=== PATIENT | female | born 1960 | race American Indian/Alaskan Native ===

== ENCOUNTER 2016-04-14 13:52 | Emergency (ER) | payer SELFPAY ==
[2016-04-14 14:04] VITALS: BP 149/96
== END 2016-04-14 14:15 | disposition left against medical advice (07) ==
LOC: ED 13:52
DX: M54.9 Dorsalgia, unspecified (principal); Z53.21 Procedure and treatment not carried out due to patient leaving prior to being seen by health care provider

== ENCOUNTER 2016-12-07 10:37 | Outpatient (CLI) | payer BC ==
[2016-12-07] MEDS ORDERED: NACL ONE ×2 (14:05)
--- NOTE | 2016-12-07 14:58 | Cat Scan Report ---
CT ABDOMEN PELVIS WITH AND WITHOUT CONTRAST HISTORY: Pancreatic mass, insulinoma TECHNIQUE: Helical CT before and after IV contrast. Sagittal and coronal reformatted images. Delayed imaging of the renal collecting systems. FINDINGS: Compared to the exam dated 09/24/12. The pancreas is normal size, contour and echotexture. No abnormal enhancement is identified to suggest an insulinoma. No pancreatic mass or inflammatory changes. The liver, biliary system, spleen, kidneys and adrenal glands are unremarkable. The bowel loops are normal caliber and mucosal pattern. Normal appendix. The aorta is normal caliber and widely patent. The uterus, adnexa and bladder are unremarkable. No evidence for inflammatory changes, free air, or adenopathy. No suspicious bony lesion. Heart size is normal. The visualized lung bases are clear. Impression: Unremarkable CT abdomen pelvis with and without contrast. No pancreatic lesion is detected.
== END 2016-12-07 10:38 | disposition home or self-care (01) ==
LOC: CT 10:37
PROVIDERS: ATTEND Internal Medicine
DX: D13.7 Benign neoplasm of endocrine pancreas (principal)
CPT/HCPCS: 74178; Q9967

== ENCOUNTER 2017-03-08 10:53 | Outpatient (CLI) | payer BC ==
--- NOTE | 2017-03-08 16:26 | Mammography Report ---
BILATERAL DIGITAL SCREENING MAMMOGRAM with CAD: 03/08/17 10:53:00 CLINICAL: Routine screening. COMPARISON:09/03/13 FINDINGS: The breasts are heterogeneously dense, which may obscure small masses. No mass, architectural distortion or suspicious calcifications. IMPRESSION: No mammographic evidence of malignancy. BI-RADS CATEGORY: 1 - - Negative RECOMMENDATION: Routine mammographic screening in one year. COMMENT: Patient follow-up letters are generated by our [employer] application.
== END 2017-03-08 10:54 | disposition home or self-care (01) ==
LOC: MAMMO 10:53
PROVIDERS: ATTEND Internal Medicine
DX: Z12.31 Encounter for screening mammogram for malignant neoplasm of breast (principal)
CPT/HCPCS: 77067; G0202

== ENCOUNTER 2017-11-24 09:34 | Outpatient (CLI) | payer BC ==
[2017-11-24 10:06] LABS: Basophils % (Auto) 0.5 % (0.0-1.8); Eosinophils # (Auto) 0.2 K/mm3 (0.0-0.4); Eosinophils % (Auto) 3.4 % (0.0-4.3); Hematocrit 42.1 % (30.3-42.9); Hemoglobin 13.7 gm/dl (10.1-14.3); Lymphocytes # (Auto) 1.7 K/mm3 (1.2-5.4); Lymphocytes % (Auto) 24.9 % (13.4-35.0); Mean Corpuscular HGB Conc 33 % (30-34); Mean Corpuscular Hemoglobin 27 pg (28-32); Mean Corpuscular Volume 82 fl (79-97); Monocytes # (Auto) 0.4 K/mm3 (0.0-0.8); Monocytes % (Auto) 6.4 % (0.0-7.3); Platelet Count 250 K/mm3 (140-440); Red Blood Count 5.15 M/mm3 (3.65-5.03); Red Cell Distribution Width 16.5 % (13.2-15.2)
[2017-11-24 10:10] LABS: Bilirubin,Urine NEG (Negative); Blood,Urine NEG (Negative); Color,Urine Yellow (Yellow); Protein,Urine <15 mg/dL mg/dL (Negative); Urobilinogen,Urine < 2.0 mg/dL (<2.0)
--- NOTE | 2017-11-24 10:33 | XRay Report ---
RIGHT FOOT, 3 views: History: Contusion, right foot pain. A nondisplaced fracture is identified involving the proximal phalanx of the fifth toe. Subtle calcified callus is identified at the fracture site consistent with a subacute injury, correlate with the patient's clinical history. The remaining bony structures and joint spaces are within normal limits. A moderate plantar spur is identified. IMPRESSION: Healing fracture, proximal phalanx, fifth toe.
[2017-11-24 10:39] LABS: Alanine Aminotransferase 12 units/L (7-56); Albumin 4.3 g/dL (3.9-5); BUN/Creatinine Ratio 26; Blood Urea Nitrogen 13 mg/dL (7-17); Calcium 9.3 mg/dL (8.4-10.2); Hemolysis Index 4
== END 2017-11-24 09:35 | disposition home or self-care (01) ==
LOC: XRAY 09:34
PROVIDERS: ATTEND Internal Medicine
DX: S92.911D Unspecified fracture of right toe(s), subsequent encounter for fracture with routine healing (principal); M19.90 Unspecified osteoarthritis, unspecified site; E78.2 Mixed hyperlipidemia; E55.9 Vitamin D deficiency, unspecified; I10 Essential (primary) hypertension; E03.8 Other specified hypothyroidism; D50.8 Other iron deficiency anemias; X58.XXXA Exposure to other specified factors, initial encounter; Y93.89 Activity, other specified; Y92.89 Other specified places as the place of occurrence of the external cause; Y99.8 Other external cause status
CPT/HCPCS: 36415; 80053; 81001; 82306; 83036; 84436; 84443; 85025

== ENCOUNTER 2018-08-15 10:29 | Outpatient (CLI) | payer BC ==
[2018-08-15 11:25] LABS: Basophils # (Auto) 0.1 K/mm3 (0.0-0.1); Basophils % (Auto) 0.8 % (0.0-1.8); Eosinophils # (Auto) 0.3 K/mm3 (0.0-0.4); Hematocrit 40.7 % (30.3-42.9); Hemoglobin 13.4 gm/dl (10.1-14.3); Lymphocytes # (Auto) 2.3 K/mm3 (1.2-5.4); Lymphocytes % (Auto) 31.1 % (13.4-35.0); Mean Corpuscular HGB Conc 33 % (30-34); Mean Corpuscular Volume 83 fl (79-97); Monocytes # (Auto) 0.5 K/mm3 (0.0-0.8); Monocytes % (Auto) 6.5 % (0.0-7.3); Platelet Count 278 K/mm3 (140-440); Red Blood Count 4.92 M/mm3 (3.65-5.03); Red Cell Distribution Width 15.9 % (13.2-15.2)
[2018-08-15 11:38] LABS: Bilirubin,Urine NEG (Negative); Blood,Urine MOD (Negative); Color,Urine Yellow (Yellow); Mucus,Urine FEW /HPF; Protein,Urine <15 mg/dL mg/dL (Negative); Urobilinogen,Urine < 2.0 mg/dL (<2.0)
[2018-08-15 11:53] LABS: Alanine Aminotransferase 11 units/L (7-56); BUN/Creatinine Ratio 20; Blood Urea Nitrogen 12 mg/dL (7-17); Calcium 9.1 mg/dL (8.4-10.2); Chol/HDL Ratio 4.32 %; HDL Cholesterol 40 mg/dL (40-59); Hemolysis Index 2; LDL Cholesterol,Direct 115 mg/dL (50-130)
[2018-08-15 12:00] LABS: Free T4 (Free Thyroxine) 1.25 ng/dL (0.76-1.46)
[2018-08-18 07:49] LABS: Vitamin D, 25-OH, D2 17 ng/mL
== END 2018-08-15 10:30 | disposition home or self-care (01) ==
LOC: LAB 10:29
PROVIDERS: ATTEND Internal Medicine
DX: Z13.1 Encounter for screening for diabetes mellitus (principal); Z13.0 Encounter for screening for diseases of the blood and blood-forming organs and certain disorders involving the immune mechanism; E78.2 Mixed hyperlipidemia; E03.8 Other specified hypothyroidism; E55.9 Vitamin D deficiency, unspecified; R73.02 Impaired glucose tolerance (oral)
CPT/HCPCS: 36415; 80053; 80061; 81001; 82306; 83036; 84439; 84443; 85025; 87086

== ENCOUNTER 2018-08-17 13:43 | Outpatient (CLI) | payer BC ==
--- NOTE | 2018-08-17 15:01 | Mammography Report ---
BILATERAL MAMMOGRAM: FINDINGS: The breast tissue is heterogeneously dense, which could obscure detection of small masses (approximately 50%-75% glandular). No mass, distortion, suspicious calcification, or skin change is seen. No significant change noted when compared to prior examination in February 2017. CAD was utilized. IMPRESSION: Negative mammogram. There is no mammographic evidence of malignancy. RECOMMENDATION: Follow-up per ACS guidelines. BI-RADS CATEGORY: 1 = Negative ACR BI-RADS MAMMOGRAPHIC CODES: 0 = Needs additional imaging evaluation; 1 = Negative; 2 = Benign; 3 = Probably benign; 4 = Suspicious; 5 = Malignant; 6 = Known biopsy-proven malignancy COMMENT: 1. Dense breast tissue, i.e., adenosis, fibrocystic changes, etc., may obscure an underlying neoplasm. 2. Approximately 10% of cancers are not detected with mammography. 3. A negative mammography report should not delay biopsy if a clinically suspicious mass is present. COMMENT: Patient follow-up letters are generated in [employer].
== END 2018-08-17 13:44 | disposition home or self-care (01) ==
LOC: MAMMO 13:43
PROVIDERS: ATTEND Internal Medicine
DX: Z12.31 Encounter for screening mammogram for malignant neoplasm of breast (principal)
CPT/HCPCS: 77067

== ENCOUNTER 2019-03-15 21:35 | Emergency (ER) | payer BC, OTHER ==
[2019-03-15] MEDS ORDERED: IBUPROFEN 800 MG TAB PO ONE (21:49)
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
[2019-03-16 02:13] VITALS: BP 148/86
== END 2019-03-16 02:11 | disposition home or self-care (01) ==
LOC: ED 21:35
DX: S13.4XXA Sprain of ligaments of cervical spine, initial encounter (principal); S39.012A Strain of muscle, fascia and tendon of lower back, initial encounter; S00.03XA Contusion of scalp, initial encounter; M19.90 Unspecified osteoarthritis, unspecified site; E03.9 Hypothyroidism, unspecified; Z88.0 Allergy status to penicillin; Z88.6 Allergy status to analgesic agent; V89.2XXA Person injured in unspecified motor-vehicle accident, traffic, initial encounter; Y93.89 Activity, other specified; Y92.410 Unspecified street and highway as the place of occurrence of the external cause; Y99.8 Other external cause status
CPT/HCPCS: 70450; 72100; 72125

== ENCOUNTER 2019-07-30 17:27 | Outpatient (CLI) | payer BC ==
[2019-07-30 18:17] LABS: Basophils % (Auto) 0.5 % (0.0-1.8); Eosinophils # (Auto) 0.2 K/mm3 (0.0-0.4); Eosinophils % (Auto) 2.4 % (0.0-4.3); Hematocrit 44.9 % (30.3-42.9); Hemoglobin 14.8 gm/dl (10.1-14.3); Lymphocytes # (Auto) 2.2 K/mm3 (1.2-5.4); Lymphocytes % (Auto) 25.1 % (13.4-35.0); Mean Corpuscular HGB Conc 33 % (30-34); Mean Corpuscular Volume 85 fl (79-97); Monocytes # (Auto) 0.3 K/mm3 (0.0-0.8); Monocytes % (Auto) 3.1 % (0.0-7.3); Platelet Count 304 K/mm3 (140-440); Red Blood Count 5.27 M/mm3 (3.65-5.03); Red Cell Distribution Width 14.8 % (13.2-15.2)
[2019-07-30 18:24] LABS: Bilirubin,Urine NEG (Negative); Blood,Urine NEG (Negative); Color,Urine Straw (Yellow); Mucus,Urine FEW /HPF; Protein,Urine <15 mg/dL mg/dL (Negative); Urobilinogen,Urine < 2.0 mg/dL (<2.0)
[2019-07-30 18:26] LABS: Creatinine,Urine 40.9 mg/dL (0.1-20.0)
[2019-07-30 18:36] LABS: Microalbumin/Creatinine Ratio 29.3 ug/mg
[2019-07-30 18:39] LABS: Alanine Aminotransferase 12 units/L (7-56); Albumin 4.9 g/dL (3.9-5); BUN/Creatinine Ratio 16; Blood Urea Nitrogen 13 mg/dL (7-17); Calcium 9.9 mg/dL (8.4-10.2); Chol/HDL Ratio 4.24 %; HDL Cholesterol 53 mg/dL (40-59); Hemolysis Index 1; LDL Cholesterol,Direct 152 mg/dL (50-130)
[2019-07-30 18:45] LABS: Hepatitis C Virus Antibody Non-Reactive (NonReactive)
== END 2019-07-30 17:28 | disposition home or self-care (01) ==
LOC: LAB 17:27
PROVIDERS: ATTEND Internal Medicine
DX: Z13.0 Encounter for screening for diseases of the blood and blood-forming organs and certain disorders involving the immune mechanism (principal); E78.2 Mixed hyperlipidemia
CPT/HCPCS: 36415; 80053; 80061; 81001; 82043; 82652; 83036; 84436; 84443; 85025; 86803

== ENCOUNTER 2019-08-09 14:06 | Outpatient (CLI) | payer BC ==
--- NOTE | 2019-08-10 09:07 | Mammography Report ---
DIGITAL SCREENING MAMMOGRAM WITH CAD, 08/09/2019 INDICATION: Routine screening mammography. TECHNIQUE: Digital bilateral 2D mammography was obtained in the craniocaudal and mediolateral obliq ue projections. This examination was interpreted with the benefit of Computer-Aided Detection analysi s. COMPARISON: 03/08/2017. FINDINGS: Breast Density: The breasts are heterogeneously dense, which may obscure small masses. There is no evidence of dominant mass, suspicious calcifications or architectural distortion in eithe r breast. IMPRESSION: Follow up recommendation: Routine yearly BI-RADS Category 1: Negative. A "normal" or negative report should not discourage follow up or biopsy of a clinically significant f inding. A written summary of these findings will be mailed to the patient. The patient will be entered into a mammography reporting system which will generate a reminder letter for the patient's next appointmen t at the appropriate interval. The [employer] recommends yearly mammograms starting at age 40 and continuing as l jailene as a woman is in good health. Breast MRI is recommended for women with an approximate 20-25% or greater lifetime risk of breast cancer, including women with a strong family history of breast or ova emi cancer or who have been treated for Hodgkin's disease. Signer Name: Paul Ribeiro MD Signed: 08/10/2019 9:03 AM Workstation Name: [email or web address]
== END 2019-08-09 14:07 | disposition home or self-care (01) ==
LOC: SPVWC 14:06
PROVIDERS: ATTEND Internal Medicine
DX: Z12.31 Encounter for screening mammogram for malignant neoplasm of breast (principal)
CPT/HCPCS: 77067

== ENCOUNTER 2020-02-12 12:07 | Outpatient (CLI) | payer BC ==
[2020-02-12 12:56] LABS: Basophils % (Auto) 0.7 % (0.0-1.8); Eosinophils # (Auto) 0.3 K/mm3 (0.0-0.4); Eosinophils % (Auto) 4.2 % (0.0-4.3); Hemoglobin 13.7 gm/dl (10.1-14.3); Lymphocytes # (Auto) 1.8 K/mm3 (1.2-5.4); Lymphocytes % (Auto) 25.8 % (13.4-35.0); Mean Corpuscular HGB Conc 33 % (30-34); Mean Corpuscular Volume 85 fl (79-97); Monocytes # (Auto) 0.5 K/mm3 (0.0-0.8); Monocytes % (Auto) 6.4 % (0.0-7.3); Platelet Count 253 K/mm3 (140-440); Red Blood Count 4.94 M/mm3 (3.65-5.03)
[2020-02-12 13:04] LABS: Alanine Aminotransferase 14 units/L (7-56); Albumin 4.2 g/dL (3.9-5); Blood Urea Nitrogen 12 mg/dL (7-17); Calcium 9.3 mg/dL (8.4-10.2); Chol/HDL Ratio 4.02 %; HDL Cholesterol 44 mg/dL (40-59); Hemolysis Index 1; LDL Cholesterol,Direct 106 mg/dL (50-130)
[2020-02-12 13:11] LABS: Erythrocyte Sedimentation Rate 16 mm/Hr (0-20)
[2020-02-12 13:33] LABS: Free T4 (Free Thyroxine) 1.22 ng/dL (0.76-1.46)
[2020-02-12 13:34] LABS: BUN/Creatinine Ratio 17
== END 2020-02-12 12:08 | disposition home or self-care (01) ==
LOC: LAB 12:07
PROVIDERS: ATTEND Internal Medicine
DX: M79.643 Pain in unspecified hand (principal); E53.8 Deficiency of other specified B group vitamins; E78.2 Mixed hyperlipidemia; R73.02 Impaired glucose tolerance (oral); E03.9 Hypothyroidism, unspecified; Z13.0 Encounter for screening for diseases of the blood and blood-forming organs and certain disorders involving the immune mechanism; Z12.11 Encounter for screening for malignant neoplasm of colon
CPT/HCPCS: 36415; 80053; 80061; 82533; 82607; 82747; 83036; 84439; 84443; 85025; 85652

== ENCOUNTER 2020-08-14 11:26 | Outpatient (CLI) | payer BC ==
[2020-08-14 12:27] LABS: Basophils % (Auto) 0.5 % (0.0-1.8); Eosinophils # (Auto) 0.2 K/mm3 (0.0-0.4); Eosinophils % (Auto) 2.5 % (0.0-4.3); Hematocrit 42.2 % (30.3-42.9); Hemoglobin 13.8 gm/dl (10.1-14.3); Lymphocytes % (Auto) 26.2 % (13.4-35.0); Mean Corpuscular HGB Conc 33 % (30-34); Mean Corpuscular Volume 85 fl (79-97); Monocytes # (Auto) 0.5 K/mm3 (0.0-0.8); Monocytes % (Auto) 6.5 % (0.0-7.3); Platelet Count 215 K/mm3 (140-440); Red Blood Count 4.98 M/mm3 (3.65-5.03); Red Cell Distribution Width 15.5 % (13.2-15.2)
[2020-08-14 12:40] LABS: Alanine Aminotransferase 12 units/L (7-56); Albumin 4.1 g/dL (3.9-5); Blood Urea Nitrogen 13 mg/dL (7-17); Chol/HDL Ratio 3.69 %; HDL Cholesterol 43 mg/dL (40-59); Hemolysis Index 1; LDL Cholesterol,Direct 109 mg/dL (50-130)
[2020-08-14 12:41] LABS: BUN/Creatinine Ratio 22
[2020-08-14 14:52] LABS: Bilirubin,Urine NEG (Negative); Blood,Urine NEG (Negative); Color,Urine Straw (Yellow); Protein,Urine <15 mg/dL mg/dL (Negative); RBC,Urine < 1.0 /HPF (0.0-6.0); Urobilinogen,Urine < 2.0 mg/dL (<2.0)
[2020-08-14 14:55] LABS: WBC,Urine < 1.0 /HPF (0.0-6.0)
[2020-08-14 14:59] LABS: Creatinine,Urine 29.3 mg/dL (0.1-20.0)
[2020-08-14 15:01] LABS: Microalbumin/Creatinine Ratio 40.9 ug/mg
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
== END 2020-08-14 11:27 | disposition home or self-care (01) ==
LOC: XRAY 11:26 → LAB 11:26 → XRAY 11:27
PROVIDERS: ATTEND Internal Medicine
DX: Z13.0 Encounter for screening for diseases of the blood and blood-forming organs and certain disorders involving the immune mechanism (principal); E03.8 Other specified hypothyroidism; E78.2 Mixed hyperlipidemia; R73.02 Impaired glucose tolerance (oral); R35.0 Frequency of micturition; M79.642 Pain in left hand
CPT/HCPCS: 36415; 80053; 80061; 81001; 82043; 83036; 84439; 84443; 85025

== ENCOUNTER 2021-02-05 14:30 | Outpatient (CLI) | payer BC ==
--- NOTE | 2021-02-06 07:46 | Mammography Report ---
DIGITAL SCREENING MAMMOGRAM WITH CAD, 02/06/2021 CLINICAL INFORMATION / INDICATION: Routine screening mammography. SCREENING MAMMO TECHNIQUE: Digital bilateral 2D mammography was obtained in the craniocaudal and mediolateral obliqu e projections. This examination was interpreted with the benefit of Computer-Aided Detection analysis . COMPARISON: 08/09/2019 FINDINGS: Breast Density: The breasts are heterogeneously dense, which may obscure small masses. No dominant mass, suspicious calcifications, or architectural distortion in either breast. IMPRESSION: No mammographic evidence of malignancy. Follow up recommendation: Routine yearly BI-RADS Category 1: Negative. A "normal" or negative report should not discourage follow up or biopsy of a clinically significant f inding. A written summary of these findings will be mailed to the patient. The patient will be entered into a mammography reporting system which will generate a reminder letter for the patient's next appointmen t at the appropriate interval. The [employer] recommends yearly mammograms starting at age 40 and continuing as l jailene as a woman is in good health. Breast MRI is recommended for women with an approximate 20-25% or greater lifetime risk of breast cancer, including women with a strong family history of breast or ova emi cancer or who have been treated for Hodgkin's disease. Signer Name: Oracio Gardner MD Signed: 02/06/2021 7:41 AM Workstation Name: [id number]
== END 2021-02-05 14:31 | disposition home or self-care (01) ==
LOC: SPVWC 14:30
PROVIDERS: ATTEND Internal Medicine
DX: Z12.31 Encounter for screening mammogram for malignant neoplasm of breast (principal)
CPT/HCPCS: 77067

== ENCOUNTER 2021-02-19 09:42 | Outpatient (CLI) | payer BC ==
[2021-02-19 10:40] LABS: Alanine Aminotransferase 17 units/L (7-56); Blood Urea Nitrogen 15 mg/dL (7-17); Calcium 8.9 mg/dL (8.4-10.2); Hemolysis Index 2
[2021-02-19 10:57] LABS: BUN/Creatinine Ratio 30
--- NOTE | 2021-02-20 12:11 | Electrocardiograph Report ---
[facility] Test Date: 2021-02-19 Test Time: 10:44:26 Pat Name: KEN ORTIZ Department: Room: Gender: F Environmental Services Supervisor: SERGIO : 1960 Requested By: Kayden LEMUS Order Number: [id number] Reading MD: Juan Richards Measurements Intervals [place] Rate: 81 P: 55 WV: 133 QRS: 36 QRSD: 80 T: 27 QT: 402 QTc: 467 Interpretive Statements Sinus rhythm No previous ECG available for comparison Electronically Signed On 02-20-2021 12:11:14 EST by Juan Richards
== END 2021-02-19 09:43 | disposition home or self-care (01) ==
LOC: CARD 09:42
PROVIDERS: ATTEND Internal Medicine
DX: I10 Essential (primary) hypertension (principal); R73.02 Impaired glucose tolerance (oral)
CPT/HCPCS: 36415; 80053; 83036; 93005

== ENCOUNTER 2021-07-14 12:15 | Outpatient (CLI) | payer BC ==
--- NOTE | 2021-07-14 14:23 | XRay Report ---
Bilateral knees INDICATION: Knee pain FINDINGS: Advanced degenerative changes seen within bilateral knees most significant medial compartme nt with joint space narrowing and marginal osteophytes. Patellofemoral degenerative change is seen bi laterally. IMPRESSION: Tricompartmental degenerative change most significant in the medial compartment and patellofemoral jeremías int Signer Name: Naeem Tim MD Signed: 07/14/2021 2:19 PM Workstation Name: [id number]
== END 2021-07-14 12:16 | disposition home or self-care (01) ==
LOC: XRAY 12:15
PROVIDERS: ATTEND Orthopaedic Surgery
DX: M17.0 Bilateral primary osteoarthritis of knee (principal)
CPT/HCPCS: 73565

== ENCOUNTER 2021-08-20 06:16 | Inpatient (IN) | payer BC ==
[2021-08-18 10:33] LABS: Basophils # (Auto) 0.1 K/mm3 (0.0-0.1); Basophils % (Auto) 0.7 % (0.0-1.8); Eosinophils # (Auto) 0.2 K/mm3 (0.0-0.4); Hematocrit 39.6 % (30.3-42.9); Hemoglobin 12.8 gm/dl (10.1-14.3); Lymphocytes # (Auto) 1.9 K/mm3 (1.2-5.4); Lymphocytes % (Auto) 25.9 % (13.4-35.0); Mean Corpuscular HGB Conc 32 % (30-34); Mean Corpuscular Volume 83 fl (79-97); Monocytes # (Auto) 0.5 K/mm3 (0.0-0.8); Platelet Count 275 K/mm3 (140-440); Red Blood Count 4.76 M/mm3 (3.65-5.03)
[2021-08-18 10:50] LABS: Blood Urea Nitrogen 15 mg/dL (7-17); Calcium 9.3 mg/dL (8.4-10.2); Hemolysis Index 1
[2021-08-18 10:58] LABS: BUN/Creatinine Ratio 21
--- NOTE | 2021-08-18 15:29 | Anesthesia Consultation ---
Anesthesia Consult and Med Hx Date of service: 08/20/21 - Airway Anesthetic Teeth Evaluation: Good ROM Head & Neck: Adequate Mental/Hyoid Distance: Adequate Mallampati Class: Class II Intubation Access Assessment: Good - Pre-Operative Health Status ASA Pre-Surgery Classification: ASA2 Proposed Anesthetic Plan: Spinal (GA if needed) Nerve Block: AC - Pulmonary Hx Smoking: No Hx Sleep Apnea: No (SNORES) - Cardiovascular System Hx Hypertension: Yes - Central Nervous System Hx Psychiatric Problems: No - Gastrointestinal Hx Gastroesophageal Reflux Disease: No - Endocrine Hx Thyroid Disease: Yes Hx Hypothyroidism: Yes - Other Systems Hx Cancer: No Hx Obesity: Yes (BMI 32.5)
[~2021-08-20 06:16] MED LIST: ACETAMINOPHEN 500 MG TAB PO NR; CELECOXIB 200 MG CAP PO NR; GABAPENTIN 300 MG CAP PO NR; MAGNESIUM OXIDE 400 MG TAB PO NR; MIDAZOLAM 2 MG/2 ML INJ IV NR; SODIUM CHLORIDE 0.9% IRRIG SOLN 2000 ML IR ONE; fentaNYL 100 MCG/2 ML INJ IV NR
[2021-08-20] MEDS ORDERED: BUPIVACAINE/PF (0.5%) 5 MG/1 ML 30 ML VIAL INFILTRATI ONE ×2 (07:17→09:39)
[2021-08-20] MEDS ORDERED: KETOROLAC 30 MG/1 ML INJ ONE (07:17)
[2021-08-20] MEDS ORDERED: SODIUM CHLORIDE 0.9% 50 ML ONE (07:18)
[2021-08-20] MEDS ORDERED: TRANEXAMIC ACID 1,000 MG/10 ML ONE (07:18)
[2021-08-20] MEDS ORDERED: SODIUM CHLORIDE 0.9% 100 ML ONE (07:18)
[2021-08-20] MEDS ORDERED: MORPHINE 10 MG/1 ML INJ ONE (07:18)
[2021-08-20] MEDS: LACTATED RINGERS 1,000 ML IV SCH ×2 (07:37→19:40)
[2021-08-20] MEDS ORDERED: ONDANSETRON 4 MG/2 ML INJ IV PRN ×2 (07:42→19:09)
[2021-08-20] MEDS ORDERED: HYDROmorphone 0.5 MG/0.5 ML INJ IV PRN ×2 (07:42)
--- NOTE | 2021-08-20 07:42 | Anesthesia Day of Surgery ---
Anesthesia Day of Surgery - Day of Surgery Patient Examined: Yes Patient H&P Reviewed: Yes Patient is NPO: Yes
[2021-08-20] MEDS ORDERED: BUPIVACAINE-EPINEPHRINE/PF 0.25%-1:200,000 (30 ML) VIAL INFILTRATI ONE (07:46)
[2021-08-20] MEDS ORDERED: dexAMETHasone 4 MG/ML VIAL ONE (07:46)
[2021-08-20] MEDS ORDERED: LIDOCAINE MPF (2%) 20 MG/1 ML VIAL 5 ML ONE (07:50)
[2021-08-20] MEDS ORDERED: fentaNYL 100 MCG/2 ML INJ ONE (07:50)
[2021-08-20] MEDS ORDERED: HYDROmorphone 1 MG/1 ML INJ ONE (07:50)
[2021-08-20] MEDS ORDERED: propofoL 200 MG/20 ML VIAL IV ONE (07:50)
[2021-08-20] MEDS ORDERED: LIDOCAINE (1%) 10 MG/1 ML VIAL 20 ML MDV ONE (07:55)
[2021-08-20] MEDS ORDERED: MIDAZOLAM 2 MG/2 ML INJ ONE (08:55)
[2021-08-20] MEDS ORDERED: VANCOMYCIN/NS 1 GM/250 ML 1 GM/250 ML BAG IV NR (09:00)
[2021-08-20] MEDS ORDERED: PHENYLEPHRINE/NS 1,000 MCG/10 ML SYRINGE (OR USE) IV ONE (09:25)
[2021-08-20] MEDS ORDERED: ONDANSETRON 4 MG/2 ML INJ ONE (09:25)
[2021-08-20] MEDS ORDERED: ePHEDrine SULFATE 50 MG/1 ML INJ ONE (09:29)
[2021-08-20] MEDS ORDERED: KETOROLAC 30 MG/1 ML INJ IV ONE (09:40)
[2021-08-20] MEDS ORDERED: SODIUM CHLORIDE 0.9% 250 ML IVPB IV ONE (09:41)
[2021-08-20] MEDS ORDERED: MORPHINE 10 MG/1 ML INJ IM ONE (09:41)
[2021-08-20] MEDS ORDERED: MORPHINE 2 MG/1 ML INJ IV PRN (10:52)
[2021-08-20] MEDS ORDERED: MORPHINE 4 MG/1 ML INJ IV PRN (10:52)
--- NOTE | 2021-08-20 11:11 | Procedure Note ---
Date of procedure: 08/20/21 Pre-op diagnosis: Severe arthritis left knee Post-op diagnosis: same Procedure: Left total knee replacement Procedure The patient was brought to the OR and placed on the OR table, next she was requested to sit upright at which point spinal anesthesia given w/o complication the patient is left lower extremity was prepped and draped in the usual sterile manner. A timeout procedure was done to identify the patient in the correct operative site. The leg was flexed to 90 degrees to maintain pressure on the arterial blood supply no tourniquet was used initially. A midline incision was made over the patella was taken down distally towards the tibial tubercle next the medial retinaculum was incised and the patella was inverted examination of the patient's knee joint revealed typical osteoarthritic changes with large bone spurs noted primarily in the medial compartment both the femoral and tibial's articular surfaces exhibited bare bone and large peripheral osteophytes next a large drill bit was used to enter the medullary canal this was followed by placement of the distal femoral cutting Jig the distal femur was resected approximately 8-9 mm of bone was removed at this time. Attention was turned to the patient's proximal tibia using a external alignment guide the bone was cut using the medial surface as the low point of care was taken to protect the medial collateral ligaments the tibial articular surface was then sized A3 a +1 tibial based ray was selected this was followed by placement of the fixation hole or keel into the proximal tibial artery medullary canal. Attention was turned to the distal femur and using a 4 and 1 cutting block a +1 component was selected AP anterior and posterior as well as Shamfer cuts were made a +3 tibial osteotomy femoral component was placed and the knee was then taken to a range of motion she appeared to have stability in both the flexion and extension FOLLOWING this the trial components were removed the knee was then copiously irrigated any remaining soft tissue and bony debris were removed at this time next the cement was next and following this the tibial components were inserted beginning with the based tray followed by the polyethylene insert The femoral component was added the excess were removed the knee was held in extension until the cement hardened following hardening of cement the knee was then brought back into of flexion any remaining soft tissue and bony debris were removed at this time. A metal staple used to secure the patellar tendon onto the proximal tibial. The wound again was irrigated and was closed in a standard routine fashion. Dressings were applied the patient tolerated the procedure there were no complications she was then taken to post anesthesia recovery Anesthesia: spinal Surgeon: ROSANA DELACRUZ (Kuldeep Ramirez, 1st assist) Estimated blood loss: other (250 cc) Pathology: list Condition: stable Disposition: PACU
--- NOTE | 2021-08-20 13:07 | XRay Report ---
Left knee-2 views INDICATION: Postop evaluation. IMPRESSION: Satisfactory postoperative appearance of the left knee arthroplasty with no immediate co mplication identified. Signer Name: Oracio Gardner MD Signed: 08/20/2021 1:03 PM Workstation Name: [id number]
--- NOTE | 2021-08-20 14:29 | Post Anesthesia Evaluation ---
- Post Anesthesia Evaluation Patient Participated: Yes Airway Patent: Yes Stable Respiratory Function: Yes Nausea/Vomiting: No Temp > 96.8F: Yes Pain Manageable: Yes Adequeate Hydration: Yes Anesthesia Complications: No Block Receding Appropriately: Yes Patient on Ventilator: No
[2021-08-20] MEDS: KETOROLAC 30 MG/1 ML INJ IV PRN (21:02)
[2021-08-20] MEDS ORDERED: VANCOMYCIN/NS 1 GM/250 ML 1 GM/250 ML BAG IV SCH (22:00)
--- OUTSIDE RECORDS SUMMARY | 2021-08-21 05:59 | External Medical Summary ---
:1960 Author Organization [facility], [facility] Address [address] [place] [id number] Care Team Providers Name Role Phone Main Unavailable [phone] PROBLEMS Type Condition ICD9-CM THP89-TI Onset Condition W/U Status Risk SNOM ED Notes Code Code Dates Status Code Problem Unilateral M17.12 Active confirmed 439727239 primary osteoarthriti s, left knee Problem Unilateral M17.10 Active confirmed 286030917 primary osteoarthriti s, unspecified knee ALLERGIES Allergen (clinical drug Drug/Non Drug Allergy Reaction Allergy Type Onset Date Status ingredient) documented on EMR penicillin V Penicillin Unknown Drug Allergy Active codeine Codeine Unknown Drug Allergy Active ENCOUNTERS from 1960 to 2021-08-20 Encounter Location Date Provider Diagnosis [address], [place] [address] IMMUNIZATIONS No Information SOCIAL HISTORY Sex Assigned At : Social History Observation Description Sex Assigned At Unknown REASON FOR REFERRAL from 1960 to 2021-08-20 Reason Left TKR Diagnosis 1 Unilateral primary osteoarth ritis, left knee (M17.12) Diagnosis 2 Pain in left knee (M25.562) Referral Organization [facility] Referring Provider First Name Raymundo Referring Provider Last Name Main Referring Provider Specialty Orthopedic Surgery Referred Provider [facility], - Referral Priority Routine VITAL SIGNS No information MEDICATIONS Medication SIG (Take, Route, Notes Start Date End Date Status Frequency, Duration) Walker - as directed July, Active Lisinopril 20 MG 1 tablet Orally Once a Active day for 30 day(s) Atorvastatin Calcium 20 MG 1 tablet Orally Once a Active day for 30 day(s) traMADol HCl 50 MG 1 tablet as needed July, Active Orally Q 6 HOURS PRN PAIN [employer] Rolling Walker - as directed July, Active Levothyroxine Sodium 25 MCG 1 tablet in the morning Active on an empty stomach Orally Once a day for 30 day(s) Aspirin 81 MG 1 tablet Orally Once a Active day for 30 day(s) PROCEDURES No Information RESULTS No Results REASON FOR VISIT LEFT TKR MEDICAL (GENERAL) HISTORY Type Description Date Medical History HTN Medical History THYROID DISORDER Medical History CHOLESTEROL Medical History JOINT PAIN Medical History BACK PAIN Surgical History ANTHONY KNEE SCOPES 2000 Goals Section No Information Health Concerns No Information MEDICAL EQUIPMENT No Information MENTAL STATUS No Information FUNCTIONAL STATUS No Information ASSESSMENTS No Information PLAN OF TREATMENT Referrals Referral Date Details Left TKR Insurance Providers Payer Name Payer Payer Insured Patient Coverage Coverage Subscriber Group Address Phone Name Relationship Start End Date Number Nu mber to Insured Date [employer] [phone] Mini ORTIZ self [id number] Prime [phone] REMALATHA [id number] [place] [address]
[2021-08-21] MEDS: ENOXAPARIN 40 MG/0.4 ML INJ SUB-Q SCH (09:41)
[2021-08-21] MEDS: KETOROLAC 30 MG/1 ML INJ IV PRN (10:24)
--- NOTE | 2021-08-21 13:03 | Progress Note ---
Assessment and Plan s/p left TKR doing ok begin PT/rehab, continue observation Subjective Date of service: 08/21/21 Interval history: resting comfortable in bed, no major c/o's noted, awaiting PT evaluation... Objective Vital signs: Vital Signs - 12hr 08/21/21 08/21/21 08/21/21 03:57 09:19 12:03 Temperature 98.4 F Pulse Rate 84 Respiratory 16 Rate Blood Pressure 110/60 O2 Sat by Pulse 98 98 98 Oximetry - Labs CBC & BMP: 08/18/21 09:45 08/18/21 09:45
--- NOTE | 2021-08-21 21:42 | Consultation ---
History of Present Illness - Reason for Consult Consult date: 08/21/21 Medical management Requesting physician: ROSANA DELACRUZ - History of Present Illness S/p left TKA Postop doing well Consultation for medical management Patient has hypothyroidism, hypertension, hyperlipidemia and osteoarthritis. Past History Past Medical History: arthritis, hypertension, hyperlipidemia, hypothyroidism Past Surgical History: total knee replacement Social history: lives with family, full code. denies: smoking, alcohol abuse Family history: hypertension Medications and Allergies Allergies Allergy/AdvReac Type Severity Reaction Status Date / Time Penicillins Allergy Mild Tachycardia Verified 08/21/21 09:40 codeine Allergy Tachycardia Verified 08/21/21 09:40 Home Medications Medication Instructions Recorded Confirmed Last Taken Type Aspirin [Vazalore] 81 mg PO DAILY 08/12/21 08/21/21 08/12/21 History AtorvaSTATin [Lipitor] 20 mg PO QHS 08/12/21 08/21/21 08/19/21 History Levothyroxine [Synthroid] 25 mcg PO QAM 08/12/21 08/21/21 08/20/21 History Diclofenac 1% [Diclofenac 1% 2 gm TP QID 08/21/21 08/21/21 07/26/21 History topical gel] Losartan [Cozaar] 50 mg PO QDAY 08/21/21 08/21/21 08/19/21 History Active Meds: Active Medications Atorvastatin Calcium (Atorvastatin 20 Mg Tab) 20 mg PO QHS [facility] Enoxaparin Sodium (Enoxaparin 40 Mg/0.4 Ml Inj) 40 mg SUB-Q QDAY [facility] Last Admin: 08/21/21 09:41 Dose: 40 mg Ibuprofen (Ibuprofen 600 Mg Tab) 600 mg PO Q6H PRN PRN Reason: Pain, Mild (1-3) Ketorolac Tromethamine (Ketorolac 30 Mg/1 Ml Inj) 15 mg IV Q6H PRN PRN Reason: Pain, Moderate (4-6) Stop: 08/25/21 10:51 Last Admin: 08/21/21 10:24 Dose: 15 mg Levothyroxine Sodium (Levothyroxine 25 Mcg Tab) 25 mcg PO DAILY@0600 [facility] Morphine Sulfate (Morphine 2 Mg/1 Ml Inj) 2 mg IV Q4H PRN PRN Reason: Pain, Moderate (4-6) Last Admin: 08/21/21 05:21 Dose: 2 mg Morphine Sulfate (Morphine 4 Mg/1 Ml Inj) 4 mg IV Q4H PRN PRN Reason: Pain , Severe (7-10) Ondansetron HCl (Ondansetron 4 Mg/2 Ml Inj) 4 mg IV Q6H PRN PRN Reason: Nausea And Vomiting Last Admin: 08/20/21 19:40 Dose: 4 mg Sodium Chloride (Sodium Chloride 0.9% 10 Ml Flush Syringe) 10 ml IV PRN NR Stop: 08/22/21 10:59 Last Admin: 08/21/21 09:41 Dose: 10 ml Exam - Constitutional Vitals: Temp Pulse Resp BP Pulse Ox 97.9 F 103 H 16 111/65 95 08/21/21 13:58 08/21/21 13:58 08/21/21 13:58 08/21/21 13:58 08/21/21 13:58 General appearance: Present: no acute distress, well-nourished - EENT Eyes: Present: PERRL ENT: hearing intact, clear oral mucosa - Neck Neck: Present: supple, normal ROM - Respiratory Respiratory effort: normal Respiratory: bilateral: CTA - Cardiovascular Heart rate: 78 Rhythm: regular Heart Sounds: Present: S1 & S2. Absent: rub, click - Extremities Extremities: no ischemia, pulses intact, pulses symmetrical, No edema, abnormal (Decreased range of motion of the left knee) Extremity abnormal: other (Decreased range of motion in the left knee) Peripheral Pulses: within normal limits - Abdominal General gastrointestinal: Present: soft, non-tender, non-distended, normal bowel sounds Female genitourinary: Present: normal - Integumentary Integumentary: Present: clear, warm, dry - Musculoskeletal Musculoskeletal: gait normal, strength equal bilaterally - Psychiatric Psychiatric: appropriate mood/affect, intact judgment & insight - Neurologic Neurologic: CNII-XII intact, moves all extremities Results - Labs CBC & Chem 7: 08/18/21 09:45 08/18/21 09:45 Assessment and Plan - Patient Problems (1) S/P total knee arthroplasty Current Visit: Yes Status: Acute Qualifiers: Laterality: left Qualified Code(s): Z96.652 - Presence of left artificial knee joint Plan to address problem: Patient had left total knee arthroplasty Patient doing well postop (2) Hypothyroidism Current Visit: Yes Status: Chronic Qualifiers: Hypothyroidism type: acquired Qualified Code(s): E03.9 - Hypothyroidism, unspecified Plan to address problem: Continue Synthroid Check TSH (3) Hypertension Current Visit: Yes Status: Chronic Qualifiers: Hypertension type: primary hypertension Qualified Code(s): I10 - Essential (primary) hypertension Plan to address problem: Continue home antihypertensives and adjust medications (4) Hyperlipidemia Current Visit: Yes Status: Chronic Qualifiers: Hyperlipidemia type: mixed hyperlipidemia Qualified Code(s): E78.2 - Mixed hyperlipidemia Plan to address problem: Continue statins (5) DVT prophylaxis Current Visit: Yes Status: Acute Plan to address problem: On SCDs and GI prophylaxis (6) Advance care planning Current Visit: Yes Status: Acute Plan to address problem: Disease education conducted, care plan discussed, diagnosis discussed, prognosis discussed. Patient acknowledges understanding and agrees with care plan. +30 minutes.
[2021-08-21] MEDS: IBUPROFEN 600 MG TAB PO PRN (22:19)
[2021-08-21] MEDS: LOSARTAN 50 MG TAB PO SCH (22:19)
[2021-08-22] MEDS: IBUPROFEN 600 MG TAB PO PRN (05:48)
[2021-08-22] MEDS ORDERED: LEVOTHYROXINE 25 MCG TAB PO SCH ×2 (06:00)
--- NOTE | 2021-08-22 08:30 | Progress Note ---
Assessment and Plan Assessment and plan: #Left total knee arthroplasty -s/p left total knee arthroplasty -PT evaluation -lovenox for DVT PPx -management per primary #Hypothyroidism -continue synthroid #Hypertension -Continue home antihypertensives and adjust medications #Hyperlipidemia -Continue statin #Advanced care planning -Disease education conducted, care plan discussed, diagnosis discussed, prognosis discussed. Patient acknowledges understanding and agrees with care plan. +30 minutes. History Interval history: Patient sitting in recliner. Reports pain is controlled with as needed pain medications. She has no other complaints at this time. Hospitalist Physical - Physical exam Narrative exam: GENERAL: Well-developed well-nourished. In no acute distress. HEENT: Normocephalic. Atraumatic. NECK: Supple. CHEST/LUNGS: CTAB on room air HEART/CARDIOVASCULAR: RRR. No murmur, rubs or gallops appreciated. ABDOMEN: +BS. NT/ND. SKIN: No rashes noted. NEURO: No focal motor deficit. Follows all commands and is ambulatory. MUSCULOSKELETAL: No joint effusion EXTREMITIES: Left lower extremity bandage with mild pedal edema. Right lower extremity without abnormality. PSYCH: Cooperative. - Constitutional Vitals: Temp Pulse Resp BP Pulse Ox 98.2 F 103 H 20 147/82 98 08/21/21 22:12 08/22/21 01:10 08/22/21 00:00 08/21/21 22:19 08/22/21 00:00 General appearance: Present: no acute distress, well-nourished Results - Labs CBC & Chem 7: 08/18/21 09:45 08/18/21 09:45 Labs: Laboratory Last Values WBC 7.5 K/mm3 (4.5-11.0) 08/18/21 09:45 RBC 4.76 M/mm3 (3.65-5.03) 08/18/21 09:45 Hgb 12.8 gm/dl (10.1-14.3) 08/18/21 09:45 Hct 39.6 % (30.3-42.9) 08/18/21 09:45 MCV 83 fl (79-97) 08/18/21 09:45 MCH 27 pg (28-32) L 08/18/21 09:45 MCHC 32 % (30-34) 08/18/21 09:45 RDW 16.0 % (13.2-15.2) H 08/18/21 09:45 Plt Count 275 K/mm3 (140-440) 08/18/21 09:45 Lymph % (Auto) 25.9 % (13.4-35.0) 08/18/21 09:45 [place] % (Auto) 7.0 % (0.0-7.3) 08/18/21 09:45 Eos % (Auto) 3.0 % (0.0-4.3) 08/18/21 09:45 Baso % (Auto) 0.7 % (0.0-1.8) 08/18/21 09:45 Lymph # (Auto) 1.9 K/mm3 (1.2-5.4) 08/18/21 09:45 [place] # (Auto) 0.5 K/mm3 (0.0-0.8) 08/18/21 09:45 Eos # (Auto) 0.2 K/mm3 (0.0-0.4) 08/18/21 09:45 Baso # (Auto) 0.1 K/mm3 (0.0-0.1) 08/18/21 09:45 Seg Neutrophils % 63.4 % (40.0-70.0) 08/18/21 09:45 Seg Neutrophils # 4.8 K/mm3 (1.8-7.7) 08/18/21 09:45 Sodium 140 mmol/L (137-145) 08/18/21 09:45 Potassium 4.2 mmol/L (3.6-5.0) 08/18/21 09:45 Chloride 106.4 mmol/L (98-107) 08/18/21 09:45 Carbon Dioxide 21 mmol/L (22-30) L 08/18/21 09:45 Anion Gap 17 mmol/L 08/18/21 09:45 BUN 15 mg/dL (7-17) 08/18/21 09:45 Creatinine 0.7 mg/dL (0.6-1.2) 08/18/21 09:45 Estimated GFR > 60 ml/min 08/18/21 09:45 BUN/Creatinine Ratio 21 % 08/18/21 09:45 Glucose 102 mg/dL (65-100) H 08/18/21 09:45 Calcium 9.3 mg/dL (8.4-10.2) 08/18/21 09:45 SARS-CoV-2 (PCR) Negative (Negative) 08/18/21 09:40 Blood Type AB POSITIVE 08/20/21 06:45 Antibody Screen Negative 08/20/21 06:45 Reyna/IV: Voiding Method Toilet Active Medications - Current Medications Current Medications: Generic Name Dose Route Start Last Admin Trade Name Freq PRN Reason Stop Dose Admin Aspirin 81 mg 08/22/21 10:00 Aspirin Ec 81 Mg Tab PO QDAY BERRY Atorvastatin Calcium 20 mg 08/21/21 22:00 08/21/21 22:32 Atorvastatin 20 Mg Tab PO 20 mg QHS BERRY Administration Enoxaparin Sodium 40 mg 08/21/21 10:00 08/21/21 09:41 Enoxaparin 40 Mg/0.4 Ml Inj SUB-Q 40 mg QDAY BERRY Administration Ibuprofen 600 mg 08/20/21 10:52 08/22/21 05:48 Ibuprofen 600 Mg Tab PO 600 mg Q6H PRN Administration Pain, Mild (1-3) Ketorolac Tromethamine 15 mg 08/20/21 10:52 08/21/21 10:24 Ketorolac 30 Mg/1 Ml Inj IV 08/25/21 10:51 15 mg Q6H PRN Administration Pain, Moderate (4-6) Levothyroxine Sodium 25 mcg 08/22/21 06:00 08/22/21 05:40 Levothyroxine 25 Mcg Tab PO 25 mcg QAM@0600 [facility] Administration Losartan Potassium 50 mg 08/21/21 22:00 08/21/21 22:19 Losartan 50 Mg Tab PO 50 mg QDAY [facility] Administration Morphine Sulfate 2 mg 08/20/21 10:52 08/21/21 05:21 Morphine 2 Mg/1 Ml Inj IV 2 mg Q4H PRN Administration Pain, Moderate (4-6) Morphine Sulfate 4 mg 08/20/21 10:52 Morphine 4 Mg/1 Ml Inj IV Q4H PRN Pain , Severe (7-10) Ondansetron HCl 4 mg 08/20/21 19:09 08/20/21 19:40 Ondansetron 4 Mg/2 Ml Inj IV 4 mg Q6H PRN Administration Nausea And Vomiting Sodium Chloride 10 ml 08/20/21 11:00 08/21/21 09:41 Sodium Chloride 0.9% 10 Ml Flush Syringe IV 08/22/21 10:59 10 ml PRN NR Administration
[2021-08-22] MEDS: LOSARTAN 50 MG TAB PO SCH (09:13)
[2021-08-22] MEDS: ENOXAPARIN 40 MG/0.4 ML INJ SUB-Q SCH (09:14)
[2021-08-22 09:15] VITALS: BP 126/74
[2021-08-22] MEDS ORDERED: NON-FORMULARY EACH (Aspirin [Vazalore] 81 MG Capsule) PO SCH (10:00)
[2021-08-22] MEDS ORDERED: ASPIRIN EC 81 MG TAB PO SCH (10:00)
--- NOTE | 2021-08-22 10:28 | Discharge Summary ---
Providers - Providers Date of Admission: 08/20/21 06:16 Date of discharge: 08/22/21 Attending physician: ROSANA DELACRUZ MD 08/20/21 10:52 Consult to Case Management [CONS] Routine Services Needed at Discharge: Other Notified:: Yes Additional Physician Instructions: Assess Discharge needs. Physical Therapy Evaluation and Treat [CONS] Routine Comment: Reason For Exam: Eval and Treat Weight bearing status?: Full wt bearing Assistive devices?: Yes If so list: Walker Primary care physician: Ean LEMUS MD Hospitalization Condition: Stable Procedures: 61 y/o female with long hx of bilateral knee pain and stiffness, plain xrays reveal significant OA...following admission, taken to the OR where left TKR performed...post op seen and evaluated by our PT department where instructions given...Case management services consulted for post op PT services and DME's supplies... Disposition: HOME HEALTH CARE SERVICE Final Discharge Diagnosis (Prints w/discharge instructions): Severe arthritis left knee Core Measure Documentation - Palliative Care Palliative Care/ Comfort Measures: Not Applicable - Core Measures Any of the following diagnoses?: none - VTE Discharge Requirements Deep Vein Thrombosis/Pulmonary Embolism Present on Admission: No Has pt received <5 days of overlap therapy or INR<2.0: Yes Anticoagulant overlap therapy prescribed at discharge: Yes Contraindication No Overlap Therapy order at DC: Medical Contraindication - Acute MT Discharge Requirements Aspirin at discharge: No - Heart Failure Discharge Requirements AMADOR/ARB for LVSD if EF <40%: Not Applicable - Stroke Discharge Requirements Statin for LDL = or >70 mg/dl on DC: Not Applicable Exam - Physical Exam Narrative exam: left knee - post op dressing intact, slight bloody drainage inferiorly, no sign infection, negative Porfirio's sign, distal n/v intact - Constitutional Vitals: Temp Pulse Resp BP Pulse Ox 98.2 F 91 H 20 126/74 97 08/21/21 22:12 08/22/21 09:13 08/22/21 00:00 08/22/21 09:13 08/22/21 09:10 Plan Activity: advance as tolerated Weight Bearing Status: Weight Bear as Tolerated Diet: regular Wound: keep clean and dry Special Instructions: physical therapy Durable Medical Equipment Needed Upon Discharge: Walker-Standard, Bedside Commode Follow up with: Kayden LEMUS MD [Primary Care Provider] - 7 Days Prescriptions: Apixaban [Eliquis] 5 mg PO DAILY #30 oxyCODONE /ACETAMINOPHEN [Percocet 5/325] 1 tab PO Q6HR PRN #30 tablet PRN Reason: Pain
[2021-08-22] MEDS ORDERED: LOSARTAN 50 MG TAB PO SCH (22:00)
== END 2021-08-22 15:00 | disposition home health service (06) | DRG 470 ==
LOC: 3A 06:16
PROVIDERS: ADMIT Orthopaedic Surgery; ATTEND Orthopaedic Surgery
PROC: 0SRD0J9 Replacement of Left Knee Joint with Synthetic Substitute, Cemented, Open Approach (ICD-10-PCS; principal; 2021-08-20)
DX: M17.12 Unilateral primary osteoarthritis, left knee (principal); Z20.822 Contact with and (suspected) exposure to COVID-19; I10 Essential (primary) hypertension; E78.5 Hyperlipidemia, unspecified; E03.9 Hypothyroidism, unspecified; E66.9 Obesity, unspecified; Z79.899 Other long term (current) drug therapy; Z68.32 Body mass index [BMI] 32.0-32.9, adult; Z88.0 Allergy status to penicillin; Z88.6 Allergy status to analgesic agent; Z82.49 Family history of ischemic heart disease and other diseases of the circulatory system
CPT/HCPCS: 36415; 64450; 80048; 85025; 86850; 86900; 86901; 88304; 88311; 94760; G0378; J3490; C1713; C1776; J1100; J1170; J1650; J1885; J2250; J2270; J2370; J2405; J2704; J3010; J3370; J7050; J7120; U0003

== ENCOUNTER 2021-10-28 12:48 | Outpatient (CLI) | payer BC ==
--- NOTE | 2021-10-28 14:09 | XRay Report ---
BILATERAL KNEES STANDING AP VIEW INDICATION: BILATERAL KNEE PAIN.. COMPARISON: 07/14/2021 IMPRESSION: Left knee arthroplasty changes are evident since the previous exam. The hardware appears well applied with anatomic alignment at the joint space. There are moderate tricompartmental osteoa rthritic changes in the right knee. The medial compartment appears most affected. Mild lateral sublux ation of the tibial plateau with respect to the distal femur measures 5-6 mm. No acute osseous abnorm ality or bone lesion is identified. Signer Name: Gabino De Jesus Jr, MD Signed: 10/28/2021 2:05 PM Workstation Name: [id number]
== END 2021-10-28 12:49 | disposition home or self-care (01) ==
LOC: XRAY 12:48
PROVIDERS: ATTEND Orthopaedic Surgery
DX: M17.11 Unilateral primary osteoarthritis, right knee (principal); Z96.652 Presence of left artificial knee joint
CPT/HCPCS: 73565

== ENCOUNTER 2021-12-10 14:27 | Outpatient (CLI) | payer BC ==
[2021-12-10 15:33] LABS: Hematocrit 38.3 % (30.3-42.9); Hemoglobin 12.6 gm/dl (10.1-14.3); Mean Corpuscular HGB Conc 33 % (30-34); Mean Corpuscular Volume 81 fl (79-97); Platelet Count 320 K/mm3 (140-440)
[2021-12-10 15:39] LABS: Color,Urine Colorless (Yellow)
[2021-12-10 15:43] LABS: Bacteria,Urine 1+ /HPF (Negative)
[2021-12-10 15:49] LABS: Alanine Aminotransferase 14 units/L (7-56); Albumin 4.3 g/dL (3.9-5); Blood Urea Nitrogen 10 mg/dL (7-17); Calcium 9.1 mg/dL (8.4-10.2); Chol/HDL Ratio 5.24 %; HDL Cholesterol 33 mg/dL (40-59); Hemolysis Index 9; LDL Cholesterol,Direct 107 mg/dL (50-130)
[2021-12-10 16:01] LABS: BUN/Creatinine Ratio 17
[2021-12-10 16:54] LABS: Creatinine,Urine 20.5 mg/dL (0.1-20.0); Microalbumin/Creatinine Ratio 58.5 ug/mg
== END 2021-12-10 14:28 | disposition home or self-care (01) ==
LOC: LAB 14:27
PROVIDERS: ATTEND Internal Medicine
DX: Z13.0 Encounter for screening for diseases of the blood and blood-forming organs and certain disorders involving the immune mechanism (principal); Z12.11 Encounter for screening for malignant neoplasm of colon; I10 Essential (primary) hypertension; E78.2 Mixed hyperlipidemia; E03.8 Other specified hypothyroidism; R73.02 Impaired glucose tolerance (oral)
CPT/HCPCS: 36415; 80053; 80061; 81001; 82043; 82784; 84436; 84443; 85027